=== PATIENT | male | born 1995 | race African-American/Black ===

== ENCOUNTER 2020-04-09 18:11 | Emergency (ER) | payer OTHER, SELFPAY ==
--- NOTE | ~2020-04-09 | XR_ITS ---
EXAMINATION: XR hand RT min 3V DATE: 04/09/2020 18:31 INDICATION: Right hand injury TECHNIQUE: Posteroanterior, oblique and lateral views of the right hand were obtained. COMPARISON: None. FINDINGS: Mildly comminuted extra articular fracture at the neck of the right fifth metacarpal (boxer's fractur e). There is mild palmar displacement and angulation of the metacarpal head relative to the diaphysis . No other fractures identified. Joint spaces are normal. Prominent soft tissue swelling at the dorsa l/ulnar side of the hand. IMPRESSION: 1. Widely displaced and angled weighted comminuted extra articular fracture at the neck of the right fifth metacarpal. Reviewed, dictated and finalized at location A.
[2020-04-09 18:23] VITALS: BP 140/86; PULSE 74; RESP 16; TEMP 36.9; O2SAT 99
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
== END 2020-04-09 19:14 | disposition home or self-care (01) ==
PROVIDERS: Emergency Provider Nurse Practitioner
DX: S62.336A Displaced fracture of neck of fifth metacarpal bone, right hand, initial encounter for closed fracture (principal); W22.09XA Striking against other stationary object, initial encounter
CPT/HCPCS: 29125; 73130; 99214; A4565; G0463

== ENCOUNTER 2021-03-22 12:26 | Emergency (ER) | payer OTHER, SELFPAY ==
[2021-03-22 12:38] VITALS: BP 138/87; PULSE 60; RESP 20; TEMP 36.6; O2SAT 99
--- NOTE | 2021-03-22 12:51 | ED.MALEGU ---
HPI - Male Genitourinary General Chief complaint: Urogenital-Male Stated complaint: STD Time Seen by Provider: 03/22/21 12:52 Source: patient and RN notes reviewed Mode of arrival: ambulatory Limitations: no limitations History of Present Illness HPI Narrative: 25-year-old male presents to the [facility] with complaints of with cloudy urine, pain at the tip with burning and discharge in his underwear. States he has been with the same person for 3 years and does have unprotected sex. Related Data Allergies Allergy/AdvReac Type Severity Reaction Status Date / Time pollen extracts AdvReac Unknown WATERY EYES Verified 03/22/21 12:44 Review of Systems Review of Systems: All systems reviewed & are unremarkable except as noted in HPI and below Constitutional: Constitutional: Reports no additional constitutional complaints, Denies body ache(s) and Denies chills Eyes: Eyes: Reports no additional eye complaints ENT: Reports system reviewed and no additional complaints, except as documented Cardiovascular: Cardiovascular: Reports no additional cardiovascular complaints Respiratory: Respiratory: Reports no additional respiratory complaints Gastrointestinal: Gastrointestinal: Reports no additional gastrointestinal complaints and Denies abdominal pain Genitourinary: Genitourinary: Reports as per HPI, Reports dysuria and Reports penile discharge Musculoskeletal: Musculoskeletal: Reports no additional musculoskeletal complaints Integumentary/Breasts: Skin/Breast: Reports system reviewed and no additional complaints, except as docu Neurologic: Reports system reviewed and no additional complaints, except as documented Psychiatric: Psychiatric: Reports no additional psychiatric complaints Allergic/Immunologic: Allergic/Immunologic: Reports no additional allergic/immunologic complaints [facility] Past Medical History Medical History (Updated 03/22/21 @ 20:05 by Mikala Isaacs) No significant medical problems Surgical History Surgical History (Updated 03/22/21 @ 20:05 by Mikala Isaacs) No significant past surgical history Social History Social History (Updated 03/22/21 @ 20:05 by Mikala Isaacs) Substance use: never Living arrangements: with family Gender identity (if verbalized by the patient): Male Comments At the time of my signature, I reviewed and agree with the nursing past medical, surgical, social, and family history. There is no relevant family history pertinent to the patient complaint. Exam Const: General: cooperative, healthy appearing, no acute distress, well developed, alert and Physically active HENMT: Head: normal to inspection Eyes: General: appearance normal, both eyes and all related structures Neck: Neck: normal visual inspection, full ROM, no lymphadenopathy, no meningeal signs and trachea midline Chest: Chest palpation & inspection: normal inspection of the chest Resp: Effort & Inspection: normal respiratory effort, able to speak in complete sentences, no audible wheezes and no cough GI: Inspection: normal to inspection GI Palp: No abdominal tenderness : Male General Exam: No erythema Penis: Yes circumcised and No erythematous Meatus: meatus normal and meatal discharge (White) Scrotum: scrotum normal Testes: Testes normal Back/Spine/Pelvis: Back: no CVA tenderness Cervical Spine: normal cervical lordosis Skin: General skin exam: normal color and no rashes or lesions noted Neuro: General: patient oriented x3 and gait normal Speech: normal speech Gait exam (Neuro): Normal gait present Extrem: General: normal to inspection, full ROM and capillary refill normal Psych: Appearance: grossly normal and well kempt Mental Status: mental status grossly normal Affect: normal affect Attitude: cooperative Thought process: Normal thought process present Course Course Emergency Course: Discharge instructions reviewed with patient, as well as provided in writing per nursing staff. T
[2021-03-22] MEDS: cefTRIAXone 1 GM VIAL 0.5 GM IM (13:07)
[2021-03-22] MEDS: LIDOCAINE HCL 1% LOCAL INJ 20 ML VIAL 2.1 ML IM (13:07)
== END 2021-03-22 13:40 | disposition home or self-care (01) ==
PROVIDERS: Emergency Provider Nurse Practitioner
DX: R36.9 Urethral discharge, unspecified (principal); R30.0 Dysuria
CPT/HCPCS: 81003; 87086; 87491; 87591; 87661; 96372; 99213; G0463; J0696

== ENCOUNTER 2022-09-19 15:47 | Emergency (ER) | payer BC, MEDICAID, SELFPAY ==
[2022-09-19 15:59] VITALS: BP 142/90; PULSE 74; RESP 14; TEMP 36.7; O2SAT 100
--- NOTE | 2022-09-19 16:12 | PC.NURSE ---
1600 eye kit at bedside.
--- NOTE | 2022-09-19 16:19 | ED.EYEPROB ---
HPI - Eye Problem General Chief complaint: Eye Problems Stated complaint: Right Eye Irritation Time Seen by Provider: 09/19/22 16:19 Source: patient Mode of arrival: ambulatory Limitations: no limitations History of Present Illness HPI Narrative: 26-year-old male presents for complaint of right eye irritation since yesterday. He states yesterday he fell like maybe he had a dog hair in the eye. He woke this morning with crust. He has had burning and itching sensation throughout the day with tearing and occasional yellow drainage. He denies significant swelling or tenderness to the eye. States about 1-2 weeks ago he did have a piece of metal in the eye, and symptoms improved after copious irrigation. He did not seek treatment at that time but reports no complications. He denies photophobia, vision changes, headaches, dizziness, fevers or chills. He denies sick contacts. MD chief complaint: eye pain Related Data Allergies Allergy/AdvReac Type Severity Reaction Status Date / Time pollen extracts AdvReac Unknown WATERY EYES Verified 03/22/21 12:44 Review of Systems Review of Systems: CONSTITUTIONAL: Denies body aches, fever, chills EYES per HPI ENT: Denies rhinorrhea, congestion, sore throat, or otalgia. CARDIOVASCULAR: Denies chest pain, palpitations RESPIRATORY: Denies cough or dyspnea. GASTROINTESTINAL: Denies abdominal pain, nausea, vomiting, or diarrhea. SKIN: Denies rash, itching, or wounds. MUSCULOSKELETAL: Denies back pain, joint pain, or myalgia. NEUROLOGIC: Denies headache, numbness, tingling, or weakness. All systems reviewed & are unremarkable except as noted in HPI and below PMFSH Past Medical History Medical History No significant medical problems Surgical History Surgical History No significant past surgical history Social History Social History Substance use: never Living arrangements: with family Gender identity (if verbalized by the patient): Male Comments At time of signature, I have reviewed and agree with nursing past medical, surgical, social and family history unless otherwise noted. Please see nursing chart for further information. There is no relevant family history pertinent to the presenting complaint Exam Narrative: GENERAL: Well-appearing HEAD: Normocephalic, atraumatic. EYES: Mild right conjunctival injection, mild eye lid swelling, no drainage; no stye formation. PERRLA, EOMI. Lid eversion showed no FB. No corneal abrasion on exam. ENT: Mucous membranes pink and moist. No rhinorrhea. TMs normal bilaterally. Throat normal. Uvula midline. ABDOMEN: Soft, nontender, nondistended SKIN: Warm, dry, no rash. Normal skin turgor. NEURO: No focal deficits. Alert and oriented x3 PSYCH: Normal affect. Course Course Emergency Course: Patient is aware of diagnosis, understands and agrees to treatment plan. Anticipatory guidance given. Patient agrees to follow-up as directed and is aware of reasons to seek care at the emergency department. Portions of this record may have been created with voice recognition software Level of Care: Express Care Visit Vital Signs Vital signs: Vital Signs Temperature 98.1 F 09/19/22 15:59 Pulse Rate 74 09/19/22 15:59 Respiratory Rate 14 09/19/22 15:59 Blood Pressure 142/90 H 09/19/22 15:59 Pulse Oximetry 100 09/19/22 15:59 Oxygen Delivery Room Air 09/19/22 15:59 Temperature 98.1 F 09/19/22 15:59 Pulse Rate 74 09/19/22 15:59 Respiratory Rate 14 09/19/22 15:59 Blood Pressure 142/90 H 09/19/22 15:59 Pulse Oximetry 100 09/19/22 15:59 Oxygen Delivery Room Air 09/19/22 15:59 Procedures FB Removal Eye Foreign Body #1: Foreign Body Removal Date: 09/19/22 Location: eye (R) Topical anesthetic used: tetracaine
== END 2022-09-19 16:34 | disposition home or self-care (01) ==
PROVIDERS: Emergency Provider Nurse Practitioner Family
DX: H57.89 Other specified disorders of eye and adnexa (principal)
CPT/HCPCS: 99213; A9270; G0463

== ENCOUNTER 2022-12-06 04:12 | Emergency (ER) | payer MEDICAID, SELFPAY ==
[2022-12-06] VITALS (8 sets, daily range): BP systolic 120–147; BP diastolic 61–110; PULSE 68–88; RESP 14–24; TEMP 36.4; O2SAT 96–100
--- NOTE | ~2022-12-06 | XR_ITS ---
EXAMINATION: XR chest 1V portable DATE: 12/06/2022 06:02 INDICATION: Chest pain. Shortness of breath. TECHNIQUE: A single frontal view of the chest was obtained. COMPARISON: Chest 2 views 04/01/2016 FINDINGS: The chest demonstrates clear lungs without pneumonia, pleural effusion, or pneumothorax. Th e heart size is normal. IMPRESSION: 1. No acute cardiopulmonary disease. Reviewed, dictated and finalized at location A.
--- NOTE | 2022-12-06 04:43 | ECG_ITS ---
Rate 83 NH 128 QRSd 88 QT 355 QTc 418 --[place]-- P 70 QRS 76 T [address] ELEVATION IN DIFFUSE LEADS- PROBABLY EARLY REPOLARIZATION BORDERLINE ECG NO PREVIOUS ECG AVAILABLE FOR COMPARISON Electronically Signed On 12-09-2022 14:15:05 CDT by Donnie NUNEZ
--- NOTE | 2022-12-06 04:43 | ED.GENADULT ---
HPI - General Adult General Chief complaint: Unspecified Stated complaint: RIGHT SIDE PAIN Time Seen by Provider: 12/06/22 04:38 History of Present Illness HPI narrative: This is a 27-year-old male who denies significant past medical history, brought in by EMS in [employer] custody complaining of chest pain. The patient states the pain is sharp, rated 7/10, substernal, and worsened with cough (nonbloody and nonproductive) and direct pressure. He denies any falls or recent trauma. He admits to drinking alcohol this evening. Related Data Home Medications Medication Instructions Recorded Confirmed No Home Medications 12/06/22 12/06/22 Allergies Allergy/AdvReac Type Severity Reaction Status Date / Time pollen extracts AdvReac Unknown WATERY EYES Verified 12/06/22 04:17 Review of Systems Review of Systems: CONSTITUTIONAL: Denies fever, chills, or sweats. CARDIOVASCULAR: Sharp substernal chest pain denies chest pain, palpitations, or edema. RESPIRATORY: Nonbloody nonproductive cough denies dyspnea. GASTROINTESTINAL: Intermittent abdominal pain denies nausea, vomiting, or diarrhea. GENITOURINARY: Denies dysuria or hematuria. SKIN: Denies rash or itching. MUSCULOSKELETAL: Denies back pain, joint pain, or myalgia. NEUROLOGIC: Denies headache, numbness, dizziness, or weakness. PSYCHIATRIC: Denies anxiety or depression. He denies suicidal or homicidal ideations. [facility] Past Medical History Medical History No significant medical problems Surgical History Surgical History No significant past surgical history Social History Social History (Updated 12/06/22 @ 04:45 by Evgeny Nagy MD) Smoking status: Current every day smoker Alcohol intake: current Drinks per week: 1 Substance use: current Substance use type: marijuana Living arrangements: with family Gender identity (if verbalized by the patient): Male Exam Narrative: GENERAL: Well-developed, well-nourished, and in no acute distress. HEAD: Normocephalic, atraumatic. EYES: PERRLA and EOMI. ENT: Nares clear, no rhinorrhea or epistaxis. Mucous membranes moist. Oropharynx without tonsillar hypertrophy exudate or other lesions. CHEST: Clear to auscultation. No respiratory distress. No wheezes rales or rhonchi. Chest pain reproducible with palpation of the midline chest HEART: Regular rate and rhythm. No murmur heard. Normal peripheral pulses. ABDOMEN: Soft, nontender, nondistended, normal active bowel sounds. EXTREMITIES: Normal range of motion. No edema. SKIN: Warm, dry, no rash. NEURO: No focal deficits. Alert and oriented x3. PSYCH: Normal mood and affect. Course Course Emergency Course: 05:03 - EKG not concerning for STEMI. This was done twice for baseline artifact on the initial one done at 04:55. 05:35 - CBC unremarkable. Chemistries demonstrate mild ALT elevation of 151 but are otherwise unremarkable. Troponin negative. Heart score 0. 05:57 - AST elevated to 1090. LFT pattern is consistent with alcohol use. An acetaminophen level is less than 10. Total bilirubin unremarkable. 06:16 - Chest x-ray unremarkable. Will discharge. The patient is fit for confinement. Discussed return and emergency precautions including signs/symptoms of ACS and respiratory distress. The patient voiced understanding and is comfortable with the plan. All questions answered to his satisfaction. Vital Signs Vital signs: Vital Signs Temperature 97.6 F 12/06/22 04:12 Pulse Rate 88 12/06/22 04:12 Respiratory Rate 20 12/06/22 04:12 Blood Pressure 147/110 H 12/06/22 04:12 Pulse Oximetry 98 12/06/22 04:12 Oxygen Delivery Room Air 12/06/22 04:12 Temperature 97.6 F 12/06/22 04:12 Pulse Rate 88 12/06/22 04:12 Respiratory Rate 20 12/06/22 04:12 Blood Pressure 147/110 H 12/06/22 04:12 Pulse Oximetry 98 12/06
[2022-12-06] MEDS: ACETAMINOPHEN 500 MG TABLET 1000 MG PO (04:56)
[2022-12-06] MEDS: BELLADONNA ALK/PHENOB ELIX 10 ML, MAG HYDROX/ALUMINUM HYD/SIMETH 30 ML, LIDOCAINE HCL 2... PO (04:58)
[2022-12-06 05:11] LABS: Basophils Percent Auto 0.2 % (0.2-1.2); Eosinophils Absolute Auto 0.1 K/mm3 (0-0.3); Eosinophils Percent Auto 1.7 % (0-4.4); Hemoglobin 15.6 g/dL (14.0-18.0); Immature Granulocyte Absolute 0.03 K/mm3 (0.00-0.031); Immature Granulocyte Percent A 0.4 % (0-0.5); Lymphocytes Absolute Auto 1.72 K/mm3 (0.9-3.2); Lymphocytes Percent Auto 20.7 % (18.3-44.2); Mean Corpuscular HGB Conc 35.5 g/dl (32-36); Mean Corpuscular Volume 78.9 fl (80-100); Mean Platelet Volume 9.5 fl (7.4-10.4); Monocytes Absolute Auto 0.7 K/mm3 (0.1-0.6); Monocytes Percent Auto 8.2 % (2.6-8.5); Neutrophils Absolute Auto 5.7 K/mm3 (1.3-6.7); Neutrophils Percent Auto 68.8 % (45.5-73.1); Platelet Count Result 233 k/mm3 (150-375); Red Blood Count 5.58 M/mm3 (4.6-6.20); White Blood Count 8.3 K/mm3 (4.5-10.0)
[2022-12-06 05:19] LABS: Alanine Aminotransferase 151 U/L (6-50); Albumin Level 4.5 g/dL (3.5-5.1); Alkaline Phosphatase 67 U/L (38-126); Anion Gap 8 mmol/L (8-16); Bilirubin,Total 0.7 mg/dL (0.2-1.3); Blood Urea Nitrogen 10 mg/dL (9-20); Calcium 8.7 mg/dL (8.4-10.2); Carbon Dioxide 26 mmol/L (22-30); Chloride 104 mmol/L (98-107); Estimated CRCL calculation 113 ml/min; Estimated Glomerular Filt Rate > 60; Glucose 100 mg/dL (65-110); Lipase 136 U/L (23-300); Potassium 3.6 mmol/L (3.4-5.0); Sodium 138 mmol/L (137-145)
[2022-12-06 05:31] LABS: Troponin I < 0.012 ng/mL (0.000-0.034)
[2022-12-06 05:40] LABS: Aspartate Amino Transferase 1090 U/L (17-59)
[2022-12-06 05:54] LABS: Acetaminophen < 10 ug/mL (10-30)
[2022-12-06] MEDS: IBUPROFEN 400 MG TABLET 800 MG PO (06:12)
== END 2022-12-06 06:31 ==
PROVIDERS: Emergency Provider Preventive Medicine Aerospace Medicine
DX: R09.1 Pleurisy (principal); F17.210 Nicotine dependence, cigarettes, uncomplicated
CPT/HCPCS: 36415; 71045; 80053; 80307; 83690; 84484; 85025; 93005; 99284; A9270

== ENCOUNTER 2023-01-20 18:10 | Emergency (ER) | payer OTHER, SELFPAY ==
[2023-01-20 18:21] VITALS: BP 136/70; PULSE 80; RESP 16; TEMP 36.7; O2SAT 98
--- NOTE | 2023-01-20 18:22 | ED.GENADULT ---
HPI - General Adult General Chief complaint: Wound/Laceration Stated complaint: Wound Check Time Seen by Provider: 01/20/23 18:20 Source: patient, RN notes reviewed and old records reviewed Mode of arrival: ambulatory Limitations: no limitations History of Present Illness HPI narrative: 27-year-old male presents to the [facility] with redness, concern for infection as well as tetanus to 2 open wounds to the left anterior lower leg. Patient states that he bumped his leg on his tractor on Thursday, 4 days ago Unknown last tetanus Has been pouring peroxide and alcohol on the wounds Onset (ago): day(s) (4) Related Data Allergies Allergy/AdvReac Type Severity Reaction Status Date / Time pollen extracts AdvReac Unknown WATERY EYES Verified 01/20/23 18:23 Review of Systems Review of Systems: All systems reviewed & are unremarkable except as noted in HPI and below Constitutional: Constitutional: Reports no additional constitutional complaints Eyes: Eyes: Reports no additional eye complaints ENT: Reports system reviewed and no additional complaints, except as documented Cardiovascular: Cardiovascular: Reports no additional cardiovascular complaints, Denies chest pain and Denies dyspnea Respiratory: Respiratory: Reports no additional respiratory complaints, Denies chest congestion, Denies cough and Denies dyspnea Gastrointestinal: Gastrointestinal: Reports no additional gastrointestinal complaints, Denies abdominal pain, Denies nausea and Denies vomiting Musculoskeletal: Musculoskeletal: Reports no additional musculoskeletal complaints Integumentary/Breasts: Skin/Breast: Reports as per HPI and Reports wounds Neurologic: Reports system reviewed and no additional complaints, except as documented Psychiatric: Psychiatric: Reports no additional psychiatric complaints Allergic/Immunologic: Allergic/Immunologic: Reports no additional allergic/immunologic complaints [facility] Past Medical History Medical History No significant medical problems Surgical History Surgical History No significant past surgical history Social History Social History Smoking status: Current every day smoker Alcohol intake: current Drinks per week: 1 Substance use: current Substance use type: marijuana Living arrangements: with family Gender identity (if verbalized by the patient): Male Comments At the time of my signature, I reviewed and agree with the nursing past medical, surgical, social, and family history. There is no relevant family history pertinent to the patient complaint. Exam Const: General: cooperative, healthy appearing, comfortable, no acute distress, well developed, alert and well nourished Nutritional Appearance: well nourished Orientation/consciousness: patient oriented x3 Limitations: no limitations HENMT: Head: normal to inspection Ears: hearing grossly normal bilaterally and external ears normal Face/Nose/Sinus: Normal external nose present, Normal nares present, Normal nasal mucous membranes and turbinates present and normal facial exam Face and sinus: normal facial exam Mouth: Yes Normal oral and palatal mucosa present, Yes lip normal and Yes moist mucous membranes Throat: posterior oropharynx normal and uvula midline Eyes: General: appearance normal, both eyes and all related structures Alignment and Position: alignment normal Periorbital: periorbital findings normal Pupils: Equal, round and reactive pupils present EOM: EOMs intact bilaterally Neck: Neck: normal visual inspection, full ROM, no lymphadenopathy and no meningeal signs Chest: Chest palpation & inspection: normal inspection of the chest Resp: Effort & Inspection: normal respiratory effort and able to speak in complete sentences Auscultation: clear to auscultation bilaterally, no licensed aircraft maintenance engineer
[2023-01-20] MEDS: TETANUS,DIPHTHERIA,AC PERTUSSIS ADULT (0.5 ML) BOOSTRIX IM (18:31)
== END 2023-01-20 18:40 | disposition home or self-care (01) ==
PROVIDERS: Emergency Provider Nurse Practitioner
DX: L03.116 Cellulitis of left lower limb (principal); Z23 Encounter for immunization; F17.200 Nicotine dependence, unspecified, uncomplicated
CPT/HCPCS: 90471; 90715; 99213; G0463

== ENCOUNTER 2023-02-23 19:51 | Emergency (ER) | payer OTHER, SELFPAY ==
[2023-02-23 19:59] VITALS: BP 150/96; PULSE 85; RESP 16; TEMP 36.8; O2SAT 100
[2023-02-23 20:00] VITALS: BP 150/96; PULSE 85; RESP 16; TEMP 36.8; O2SAT 100
--- NOTE | 2023-02-23 20:09 | ED.MALEGU ---
HPI - Male Genitourinary General Chief complaint: Urogenital-Male Stated complaint: STD Test Time Seen by Provider: 02/23/23 20:05 Source: patient and RN notes reviewed Mode of arrival: ambulatory Limitations: no limitations History of Present Illness HPI Narrative: 27-year-old male presented for possible exposure to gonorrhea. He endorses 1 of his sexual partners told him she has tested positive for gonorrhea. He admits that he have had sexual relations a few weeks ago. He currently denies any symptoms. Related Data Home Medications Medication Instructions Recorded Confirmed No Home Medications 02/23/23 02/23/23 Allergies Allergy/AdvReac Type Severity Reaction Status Date / Time pollen extracts AdvReac Unknown WATERY EYES Verified 01/20/23 18:23 Review of Systems Review of Systems: CONSTITUTIONAL: Denies body aches, fever, chills, or sweats. CARDIOVASCULAR: Denies chest pain, palpitations, or edema. RESPIRATORY: Denies cough or dyspnea. GASTROINTESTINAL: Denies abdominal pain, nausea, vomiting, or diarrhea. GENITOURINARY: Denies urethral discharge, lesions, dysuria, frequency, urgency, hematuria, flank pain SKIN: Denies rash, itching, or wounds. MUSCULOSKELETAL: Denies back pain or myalgia. [facility] Past Medical History Medical History No significant medical problems Surgical History Surgical History No significant past surgical history Social History Social History Smoking status: Current every day smoker Alcohol intake: current Drinks per week: 1 Substance use: current Substance use type: marijuana Living arrangements: with family Gender identity (if verbalized by the patient): Male Comments At time of signature, I have reviewed and agree with nursing past medical, surgical, social and family history unless otherwise noted. Please see nursing chart for further information. There is no relevant family history pertinent to the presenting complaint Exam Narrative: GENERAL: Well-appearing and in no acute distress. HEAD: Normocephalic EYES: EOMI. . ENT: Mucous membranes pink and moist. NECK: Normal AROM. Supple. CHEST: No respiratory distress. Clear to auscultation. HEART: Regular rate and rhythm. ABDOMEN: Soft, nontender, nondistended, normal active bowel sounds. No CVA tenderness MUSCULOSKELETAL: No bony tenderness. SKIN: Warm, dry, no rash. NEURO: No focal deficits. Alert and oriented x3. Gait steady. PSYCH: Normal affect. No signs of depression or anxiety. Course Course Emergency Course: Patient is aware of diagnosis, understands and agrees to treatment plan. Anticipatory guidance given. Patient agrees to follow-up as directed and is aware of reasons to seek care at the emergency department. Portions of this record may have been created with voice recognition software Level of Care: Express Care Visit Vital Signs Vital signs: Vital Signs Temperature 98.2 F 02/23/23 19:59 Pulse Rate 85 02/23/23 19:59 Respiratory Rate 16 02/23/23 19:59 Blood Pressure 150/96 H 02/23/23 19:59 Pulse Oximetry 100 02/23/23 19:59 Oxygen Delivery Room Air 02/23/23 19:59 Temperature 98.2 F 02/23/23 20:00 Pulse Rate 85 02/23/23 20:00 Respiratory Rate 16 02/23/23 20:00 Blood Pressure 150/96 H 02/23/23 20:00 Pulse Oximetry 100 02/23/23 20:00 Oxygen Delivery Room Air 02/23/23 20:00 Reviewed MDM - Male Genitourinary MDM Narrative Medical decision making narrative: Patient presenting with concern for STD. Urine specimen collected for GC, chlamydia, trich. Informed Pt will be contacted w/ results when they become available if they are positive. Discussed with patient that it takes up to 7 days for results of cultures to be released and explained that we may treat e
[2023-02-23] MEDS: cefTRIAXone 500 MG, LIDOCAINE HCL 1% LOCAL INJ 1 ML IM (20:13)
== END 2023-02-23 20:32 | disposition home or self-care (01) ==
PROVIDERS: Emergency Provider Nurse Practitioner Family
DX: Z20.2 Contact with and (suspected) exposure to infections with a predominantly sexual mode of transmission (principal); F17.200 Nicotine dependence, unspecified, uncomplicated; F12.90 Cannabis use, unspecified, uncomplicated
CPT/HCPCS: 87491; 87591; 87661; 96372; 99213; G0463; J0696

== ENCOUNTER 2023-12-28 16:07 | Emergency (ER) | payer OTHER, SELFPAY ==
--- NOTE | 2023-12-28 16:11 | ED.MALEGU ---
HPI - Male Genitourinary General Chief complaint: Urogenital-Male Stated complaint: STD Testing Time Seen by Provider: 12/28/23 16:18 Source: patient, RN notes reviewed and old records reviewed Mode of arrival: ambulatory Limitations: no limitations History of Present Illness HPI Narrative: 28-year-old male presents to the [facility] with concerns for STDs Discussed with patient that we test for 3. Chlamydia, gonorrhea and Trichomonas. Patient states that he was exposed to something, unsure. Had some penile irritation on Thursday, 5 days ago. Denies any abdominal pain. Denies any current discharge. No CVA tenderness. Denies urinary symptoms Onset (ago): day(s) (5) Related Data Sexually active: Yes Home Medications Medication Instructions Recorded Confirmed No Home Medications 02/23/23 02/23/23 Allergies Allergy/AdvReac Type Severity Reaction Status Date / Time pollen extracts AdvReac Unknown WATERY EYES Verified 12/28/23 16:12 Review of Systems Review of Systems: All systems reviewed & are unremarkable except as noted in HPI and below Constitutional: Constitutional: Reports no additional constitutional complaints Eyes: Eyes: Reports no additional eye complaints ENT: Reports system reviewed and no additional complaints, except as documented Cardiovascular: Cardiovascular: Reports no additional cardiovascular complaints, Denies chest pain and Denies dyspnea Respiratory: Respiratory: Reports no additional respiratory complaints, Denies chest congestion, Denies cough and Denies dyspnea Gastrointestinal: Gastrointestinal: Reports no additional gastrointestinal complaints, Denies abdominal pain, Denies nausea and Denies vomiting Genitourinary: Genitourinary: Reports as per HPI Musculoskeletal: Musculoskeletal: Reports no additional musculoskeletal complaints Integumentary/Breasts: Skin/Breast: Reports system reviewed and no additional complaints, except as docu Neurologic: Reports system reviewed and no additional complaints, except as documented Psychiatric: Psychiatric: Reports no additional psychiatric complaints Allergic/Immunologic: Allergic/Immunologic: Reports no additional allergic/immunologic complaints PMF Past Medical History Medical History No significant medical problems Surgical History Surgical History No significant past surgical history Social History Social History Smoking status: Current every day smoker Alcohol intake: current Drinks per week: 1 Substance use: current Substance use type: marijuana Living arrangements: with family Gender identity (if verbalized by the patient): Male Comments At the time of my signature, I reviewed and agree with the nursing past medical, surgical, social, and family history. There is no relevant family history pertinent to the patient complaint. Exam Const: General: cooperative, healthy appearing, comfortable, no acute distress, well developed, alert and well nourished Nutritional Appearance: well nourished Orientation/consciousness: patient oriented x3 Limitations: no limitations HENMT: Head: normal to inspection Ears: hearing grossly normal bilaterally and external ears normal Face/Nose/Sinus: Normal external nose present, Normal nares present, Normal nasal mucous membranes and turbinates present, normal facial exam and face symmetric Face and sinus: normal facial exam and face symmetric Eyes: General: appearance normal, both eyes and all related structures Alignment and Position: alignment normal Periorbital: periorbital findings normal Pupils: Equal, round and reactive pupils present EOM: EOMs intact bilaterally Neck: Neck: normal visual inspection, full ROM, no lymphadenopathy and no meningeal signs Chest: Chest palpation & inspection: normal inspecti
[2023-12-28 16:18] VITALS: BP 125/78; PULSE 75; RESP 16; TEMP 36.5; O2SAT 100
[2023-12-28 20:28] LABS: Trichomonas Vag PCR NOT DETECTED (NOT DETECTE)
[2023-12-28 20:53] LABS: Chlamydia trachomatis NOT DETECTED (NOT DETECTE); Neisseria gonorrhoeae PCR DETECTED (NOT DETECTE)
== END 2023-12-28 16:30 | disposition home or self-care (01) ==
PROVIDERS: Emergency Provider Nurse Practitioner
DX: A54.9 Gonococcal infection, unspecified (principal); F17.200 Nicotine dependence, unspecified, uncomplicated; F12.90 Cannabis use, unspecified, uncomplicated
CPT/HCPCS: 87491; 87591; 87661; 99213; G0463

== ENCOUNTER 2023-12-31 17:43 | Emergency (ER) | payer OTHER, SELFPAY ==
--- NOTE | 2023-12-31 17:44 | ED.MALEGU ---
HPI - Male Genitourinary General Chief complaint: Unspecified Stated complaint: f/u Time Seen by Provider: 12/31/23 17:46 Source: patient, RN notes reviewed and old records reviewed Mode of arrival: ambulatory Limitations: no limitations History of Present Illness HPI Narrative: 28-year-old male returns [facility] after being notified he had a positive gonorrhea. Patient has no complaints at this time just wanting treatment. Related Data Home Medications Medication Instructions Recorded Confirmed No Home Medications 02/23/23 12/31/23 Allergies Allergy/AdvReac Type Severity Reaction Status Date / Time pollen extracts AdvReac Unknown WATERY EYES Verified 12/31/23 17:48 Review of Systems Review of Systems: All systems reviewed & are unremarkable except as noted in HPI and below Constitutional: Constitutional: Reports no additional constitutional complaints Eyes: Eyes: Reports no additional eye complaints ENT: Reports system reviewed and no additional complaints, except as documented Cardiovascular: Cardiovascular: Reports no additional cardiovascular complaints, Denies chest pain and Denies dyspnea Respiratory: Respiratory: Reports no additional respiratory complaints, Denies chest congestion, Denies cough and Denies dyspnea Gastrointestinal: Gastrointestinal: Reports no additional gastrointestinal complaints, Denies abdominal pain, Denies nausea and Denies vomiting Musculoskeletal: Musculoskeletal: Reports no additional musculoskeletal complaints Integumentary/Breasts: Skin/Breast: Reports system reviewed and no additional complaints, except as docu Neurologic: Reports system reviewed and no additional complaints, except as documented Psychiatric: Psychiatric: Reports no additional psychiatric complaints Allergic/Immunologic: Allergic/Immunologic: Reports no additional allergic/immunologic complaints PMF Past Medical History Medical History No significant medical problems Surgical History Surgical History No significant past surgical history Social History Social History Smoking status: Current every day smoker Alcohol intake: current Drinks per week: 1 Substance use: current Substance use type: marijuana Living arrangements: with family Gender identity (if verbalized by the patient): Male Comments At the time of my signature, I reviewed and agree with the nursing past medical, surgical, social, and family history. There is no relevant family history pertinent to the patient complaint. Exam Const: General: cooperative, healthy appearing, comfortable, no acute distress, well developed, alert and well nourished Nutritional Appearance: well nourished Orientation/consciousness: patient oriented x3 Limitations: no limitations HENMT: Head: normal to inspection Ears: hearing grossly normal bilaterally and external ears normal Face/Nose/Sinus: Normal external nose present, Normal nares present, Normal nasal mucous membranes and turbinates present, normal facial exam and face symmetric Face and sinus: normal facial exam and face symmetric Eyes: General: appearance normal, both eyes and all related structures Alignment and Position: alignment normal Periorbital: periorbital findings normal Pupils: Equal, round and reactive pupils present EOM: EOMs intact bilaterally Neck: Neck: normal visual inspection, full ROM, no lymphadenopathy and no meningeal signs Chest: Chest palpation & inspection: normal inspection of the chest Resp: Effort & Inspection: normal respiratory effort and able to speak in complete sentences Auscultation: clear to auscultation bilaterally, no crackles, no rales, no rhonchi and no wheezes Cardio: Rate: regular rate Rhythm: regular rhythm : General: Yes no CVA tenderness Skin: General sk
[2023-12-31 17:45] VITALS: BP 117/61; PULSE 64; RESP 16; TEMP 36.7; O2SAT 100
[2023-12-31] MEDS: cefTRIAXone 500 MG, LIDOCAINE HCL 1% LOCAL INJ 1 ML IM (18:00)
== END 2023-12-31 18:11 | disposition home or self-care (01) ==
PROVIDERS: Emergency Provider Nurse Practitioner
DX: A54.9 Gonococcal infection, unspecified (principal); F17.200 Nicotine dependence, unspecified, uncomplicated; F12.90 Cannabis use, unspecified, uncomplicated
CPT/HCPCS: 96372; 99199; 99213; G0463; J0696

== ENCOUNTER 2025-02-23 01:43 | Emergency (ER) | payer OTHER, SELFPAY ==
[2025-02-23 01:56] VITALS: BP 117/87; PULSE 75; RESP 20; TEMP 36.4; O2SAT 99
--- OUTSIDE RECORDS SUMMARY | 2025-02-23 04:33 | XMS_ITS ---
Author Organization Unknown ENCOUNTERS Encounter Performer Location Date Diagnosis Diagnosis Status Emergency EMERGENCY ROOM PHYSICIAN [facility] [address] [place] [address] [id number] Pre Admit [facility] [address] [place] [address] [id number] Emergency Evgeny [facility] [address] [place] [address] [id number] XCLE *Note: Encounters from your own facility or health system may be excluded. Allergies, Adverse Reactions, Alerts Allergen Type Severity Identification Date pollen extracts drug allergy 3 [id number] Medications Name Date Quantity Days Supplied [facility] Number
== END 2025-02-23 02:30 | disposition left against medical advice (07) ==
DX: R53.1 Weakness (principal)
CPT/HCPCS: 99199